=== PATIENT | female | born 1955 | race Caucasian/White ===

== ENCOUNTER → 2021-07-17 | Outpatient (CLI) | payer BC, MEDICARE ==
[2021-07-17 08:36] LABS: HEMOGLOBIN 16.3 gm/dl (12.3-15.3); RED BLOOD COUNT 4.57 M/UL (4.00-5.10); WHITE BLOOD COUNT 6.8 K/UL (4.5-11.0)
[2021-07-18 07:08] LABS: CREATININE, URINE 42.6 mg/dL (Not Estab.); MICROALB/CREAT RATIO <7 (0-29); VITAMIN D, 25-HYDROXY 33.7 ng/mL (30.0-100.0)
[2021-07-18 09:10] LABS: ANTISTREPTOLYSIN O AB 36.8 IU/mL (0.0-200.0); COMPLEMENT C3, SERUM 112 mg/dL (82-167); COMPLEMENT C4, SERUM 15 mg/dL (12-38); RHEUMATOID ARTHRITIS FACTOR <10.0 IU/mL (<14.0)
[2021-07-20 06:10] LABS: DSDNA CRITHIDIA LUCILIAE IFA Negative (Negative)
== END ==
LOC: LAB 07:39
PROVIDERS: Internal Medicine
DX: Z00.00 Encounter for general adult medical examination without abnormal findings (principal); E11.9 Type 2 diabetes mellitus without complications; I10 Essential (primary) hypertension; K21.9 Gastro-esophageal reflux disease without esophagitis; R51.9 Headache, unspecified; M25.50 Pain in unspecified joint; R53.83 Other fatigue; L93.0 Discoid lupus erythematosus; M32.9 Systemic lupus erythematosus, unspecified; Z92.29 Personal history of other drug therapy
CPT/HCPCS: 36415; 80053; 80061; 81001; 82043; 82570; 82607; 83036; 84156; 84439; 84443; 84550; 85025; 85652; 86038; 86060; 86140; 86160; 86162; 86255; 86431

== ENCOUNTER → 2021-07-29 | Outpatient (CLI) | payer BC, MEDICARE | LOC: NM 07-23 08:00 → US 07-23 13:30 → NM 08:20 | DX: R06.00 Dyspnea, unspecified (principal); R80.9 Proteinuria, unspecified; R53.83 Other fatigue; R68.89 Other general symptoms and signs | CPT/HCPCS: 78452; 93017; A9502; J2785 ==

== ENCOUNTER → 2021-08-04 | Outpatient (CLI) | payer BC, MEDICARE | LOC: KOH-I 08:00 | DX: F17.210 Nicotine dependence, cigarettes, uncomplicated (principal); R91.8 Other nonspecific abnormal finding of lung field | CPT/HCPCS: 71271 ==

== ENCOUNTER → 2022-03-03 | Outpatient (CLI) | payer BC, MEDICARE | LOC: KOH-I 10:46 | DX: M54.12 Radiculopathy, cervical region (principal); R25.1 Tremor, unspecified; Z98.1 Arthrodesis status | CPT/HCPCS: 72125 ==

== ENCOUNTER → 2022-03-03 | Outpatient (CLI) | payer BC, MEDICARE | LOC: EXRD 13:11 | DX: M54.12 Radiculopathy, cervical region (principal) | CPT/HCPCS: 72040 ==